=== PATIENT | male | born 1955 | race Caucasian/White ===

== ENCOUNTER 2016-09-19 11:09 | Emergency (ER) | payer BC | END 2016-09-19 13:06 | disposition left against medical advice (07) | LOC: UCCORT 11:09 | DX: T14.8 Other injury of unspecified body region (principal); W57.XXXA Bitten or stung by nonvenomous insect and other nonvenomous arthropods, initial encounter; Y93.9 Activity, unspecified; Y92.9 Unspecified place or not applicable; Y99.9 Unspecified external cause status; Z53.21 Procedure and treatment not carried out due to patient leaving prior to being seen by health care provider ==

== ENCOUNTER 2017-07-20 16:03 | Emergency (ER) | payer BC ==
[2017-07-20 16:36] VITALS: BP 134/72
--- NOTE | 2017-07-20 16:50 | ED ---
Upper Extremity Pain - HPI Summary HPI Summary: 62 yr old male with the complaint of right shoulder pain. Onset of pain was about three weeks ago, and associated with doing decline pushups. He felt discomfort going to the extreme dip on the push up. Now he has persistent pain when lifts arm up above his head or when attempts to push down on something with his arm. Pain is over the lateral and posterior deltoid on the right. Moderate intensity. No other complaints. - History of Current Complaint Chief Complaint: UCUpperExtremity Stated Complaint: LEFT SHOULDER INJURY Time Seen by Provider: 07/20/17 16:30 - Allergies/Home Medications Allergies/Adverse Reactions: Allergies Allergy/AdvReac Type Severity Reaction Status Date / Time No Known Allergies Allergy Verified 07/20/17 16:36 PMH/Surg Hx/FS Hx/Imm Hx Previously Healthy: Yes Cardiovascular History: Denies: Hx Pacemaker/ICD Sensory History: Denies: Hx Eye Injury, Hx Hearing Aid Opthamlomology History: Denies: Hx Eye Injury Psychiatric History: Denies: Hx Panic Disorder - Surgical History Surgery Procedure, Year, and Place: VASECTOMY-25 YRS AGO. TONSILS AT AGE 13 Infectious Disease History: No Infectious Disease History: Denies: Traveled Outside the [place] in Last 30 Days - Family History Known Family History: Positive: None - Social History Occupation: Employed Full-time Alcohol Use: Daily Alcohol Amount: 1 drink daily Substance Use Type: Reports: None Smoking Status (MU): Never Smoked Tobacco Review of Systems Constitutional: Negative Positive: Other - right shoulder pain All Other Systems Reviewed And Are Negative: Yes Physical Exam Triage Information Reviewed: Yes Vital Signs On Initial Exam: Initial Vitals Temp Pulse Resp BP Pulse Ox 97.5 F 54 16 134/72 100 07/20/17 16:30 07/20/17 16:30 07/20/17 16:30 07/20/17 16:30 07/20/17 16:30 Vital Signs Reviewed: Yes Appearance: Positive: Well-Appearing, No Pain Distress Skin: Positive: Warm Head/Face: Positive: Normal Head/Face Inspection Eyes: Positive: EOMI ENT: Positive: Normal ENT inspection Cardiovascular: Positive: Pulses are Symmetrical in both Upper and Lower Extremities - intact radial ulnar right wrist. Musculoskeletal: Positive: Strength/ROM Intact - but has discomfort when his right arm is over head, and with pushing down right arm when abducted at the shoulder 90 degrees., Other - no redness no effusion right shoulder. Neurological: Positive: Sensory/Motor Intact, Alert, Oriented to Person Place, Time, CN Intact II-III Psychiatric: Positive: Normal - Raoul Coma Scale Best Eye Response: 4 - Spontaneous Best Motor Response: 6 - Obeys Commands Best Verbal Response: 5 - Oriented Coma Scale Total: 15 Diagnostics - Vital Signs Vital Signs Temp Pulse Resp BP Pulse Ox 07/20/17 16:30 97.5 F 54 16 134/72 100 - Laboratory Lab Statement: Any lab studies that have been ordered have been reviewed, and results considered in the medical decision making process. - Radiology shoulder Xray Interpretation: No Acute Changes Radiology Interpretation Completed By: Radiologist Course/Dx - Course Course Of Treatment: 62 yr old with likely rotator cuff tear. DC home. FU ortho - Diagnoses Provider Diagnoses: Rotator cuff injury Discharge - Sign-Out/Discharge Documenting (check all that apply): Discharge/Admit/Transfer - Discharge Plan Condition: Good Disposition: HOME Patient Education Materials: Rotator Cuff Injury (ED) Referrals: Ned Rice MD [Primary Care Provider] - Donato Ceballos MD [Medical Doctor] - - Billing Disposition and Condition Condition: GOOD Disposition: HOME
--- NOTE | 2017-07-20 17:58 | RAD ---
INDICATION: Right shoulder pain x a few weeks COMPARISON: Similar examination May 28, 2015 TECHNIQUE: 4 views of the right shoulder were obtained. FINDINGS: The adequately corticated bones are in normal alignment. Joint spaces appear maintained. No fracture, dislocation or focal bony abnormality is seen. IMPRESSION: Normal radiograph of the right shoulder. If the patient's symptoms persist, follow-up imaging is recommended.
== END 2017-07-20 18:14 | disposition home or self-care (01) ==
LOC: UCCORT 16:03
DX: S46.001A Unspecified injury of muscle(s) and tendon(s) of the rotator cuff of right shoulder, initial encounter (principal); Y93.B2 Activity, push-ups, pull-ups, sit-ups; Y92.9 Unspecified place or not applicable
CPT/HCPCS: 99211; G0463